=== PATIENT | female | born 1940 | race Caucasian/White ===

== ENCOUNTER 2016-10-01 13:33 | Emergency (ER) | payer OTHER ==
[~2016-10-01] VITALS: Ht 170.2 cm; Wt 68.4 kg
[~2016-10-01 13:33] MED LIST: ASPIR 8181 M1 PO; HYDROCODON-ACE1 EAC7 PO; LIBRAX, CLI1 CAPSULE PO; LOSARTAN POTASS50 MG PO; PERCOCET 5/31 TABLET PO; [UNRECOGNIZED DRUG - REMARK]
[2016-10-01 14:29] LABS: EOSINOPHIL (%) 0.8 % (0-5); EOSINOPHIL COUNT 0.1 K/uL (0-0.3); HEMATOCRIT 31.5 % (36.0-46.0); IMMATURE GRANULOCYTE (%) 0.4 % (0.0-0.7); INSTRUMENT ABS NEUTROPHIL CT 5.2 K/uL; LYMPHOCYTE COUNT 1.6 K/uL (1.0-2.8); MCHC 33.7 G/DL (30.0-36.0); MCV 95.2 FL (83-99); MEAN PLAT.VOLUME 9.1 uM^3 (9.5-12.4); MONOCYTE COUNT 0.5 K/uL (0-0.8); NEUTROPHIL (%) 70.4 % (45-76); NEUTROPHIL COUNT 5.2 K/uL (1.8-6.4); PLATELET COUNT 207 K/uL (156-360); RBC DIS.WIDTH-CV 12.3 % (11.8-14.6); RBC DIS.WIDTH-SD 42.9 % (39-53); RED BLOOD COUNT 3.31 M/uL (3.80-5.20); WHITE BLOOD COUNT 7.4 K/uL (4.1-10.2)
[2016-10-01 14:37] LABS: CHLORIDE 103 mEq/L (99-109); POTASSIUM 4.1 mEq/L (3.7-5.4); SODIUM 133 mEq/L (136-147)
[2016-10-01 14:39] LABS: GLUCOSE 112 mg/dL (70-99)
[2016-10-01 14:40] LABS: ANION GAP 9 MEQ/L (2-14)
[2016-10-01 14:43] LABS: GFR ESTIMATE (CALCULATED) 39 mL/min/
[2016-10-01 14:44] LABS: UREA NITROGEN (BUN) 20 mg/dL (9-23)
[2016-10-01] MEDS ORDERED: KEFLEX500 MG PO ×2 (18:42→18:52)
[2016-10-01 19:19] VITALS: BP 197/66
== END 2016-10-01 19:19 | disposition home or self-care (01) ==
LOC: EME 13:33
PROC: 0H9FXZZ Drainage of Right Hand Skin, External Approach (ICD-10-PCS; principal; 2016-10-01)
DX: L02.511 Cutaneous abscess of right hand (principal); L03.011 Cellulitis of right finger; J44.9 Chronic obstructive pulmonary disease, unspecified; I10 Essential (primary) hypertension; K21.9 Gastro-esophageal reflux disease without esophagitis; Z87.891 Personal history of nicotine dependence
CPT/HCPCS: 80048; 83605; 85025; 99281; 99284; J0696; J7050